=== PATIENT | male | born 1935 | race African-American/Black ===

== ENCOUNTER 2018-01-16 15:32 | Emergency (ER) | payer BC, MEDICARE ==
[~2018-01-16] VITALS: Ht 165.1 cm; Wt 62.0 kg
[2018-01-16] MEDS ORDERED: MORPHINE SULFATE 4 MG/ML CPJ (NOT FOR IM USE) IV STA (16:03)
[2018-01-16] MEDS ORDERED: ONDANSETRON HCL 4MG/2ML VIAL IV STA (16:03)
[2018-01-16] MEDS ORDERED: SODIUM CHLORIDE 0.9% 1,000 ML IV ONE (16:03)
[2018-01-16 17:14] LABS: BASOPHILS % 0.5 % (0.0-2.0); EOSINOPHILS % 0.5 % (0.0-5.0); HEMATOCRIT. 39.9 % (42.0-52.0); MEAN CORPUSCULAR HEMOGLOBIN 22.9 pg (28.0-32.0); MEAN CORPUSCULAR VOLUME 70.3 fL (80.0-94.0); MEAN PLATELET VOLUME 9.6 fl (7.4-10.4); MONOCYTES % 9.9 % (2.0-8.0); NEUTROPHILS % 64.1 % (40.0-76.0); PLATELET 165 x1000/uL (130-400); RED BLOOD CELL COUNT 5.68 mill/uL (4.7-6.1); RED CELL DISTRIBUTION WIDTH 15.9 % (11.6-14.6)
[2018-01-16 17:18] LABS: CHLORIDE 109 mEq/L (98-107)
[2018-01-16 17:23] LABS: PARTIAL THROMBOPLASTIN TIME 25.5 sec (23.4-31.0); PROTHROMBIN TIME 10.7 sec (9.4-11.6)
[2018-01-16] MEDS ORDERED: IOHEXOL-300 100 ML BOTTLE ONE (18:51)
[2018-01-17 05:35] VITALS: BP 113/65
== END 2018-01-17 05:49 | disposition short-term general hospital (02) ==
LOC: ER 19:13 → CANBEDREQ 01-17 03:47 → ER 01-17 05:49
DX: S27.321A Contusion of lung, unilateral, initial encounter (principal); R91.8 Other nonspecific abnormal finding of lung field; F03.90 Unspecified dementia, unspecified severity, without behavioral disturbance, psychotic disturbance, mood disturbance, and anxiety; I67.82 Cerebral ischemia; R94.31 Abnormal electrocardiogram [ECG] [EKG]; Z87.81 Personal history of (healed) traumatic fracture; V43.62XA Car passenger injured in collision with other type car in traffic accident, initial encounter; Y93.89 Activity, other specified; Y92.488 Other paved roadways as the place of occurrence of the external cause
CPT/HCPCS: 36415; 70450; 71045; 71260; 72100; 72125; 80053; 84484; 85025; 85610; 85730; 93005; 96374; 96375; 99285; J2270; J2405; J7030; Q9967